=== PATIENT | female | born 1975 | race Hispanic/Latino ===

== ENCOUNTER 2020-06-02 12:43 | Outpatient (CLI) | payer OTHER | END 2020-06-02 12:44 | disposition home or self-care (01) | LOC: DTY/OP 12:43 | PROVIDERS: ATTEND Surgery | DX: E66.01 Morbid (severe) obesity due to excess calories (principal) | CPT/HCPCS: 97802 ==

== ENCOUNTER 2020-08-02 12:31 | Outpatient (CLI) | payer OTHER | END 2020-08-02 12:32 | disposition home or self-care (01) | LOC: DTY/OP 12:31 | PROVIDERS: ATTEND Surgery | DX: E66.01 Morbid (severe) obesity due to excess calories (principal) | CPT/HCPCS: 97802 ==

== ENCOUNTER 2020-09-06 12:35 | Outpatient (CLI) | payer OTHER | END 2020-09-06 12:36 | disposition home or self-care (01) | LOC: DTY/OP 12:35 | PROVIDERS: ATTEND Surgery | DX: E66.01 Morbid (severe) obesity due to excess calories (principal) | CPT/HCPCS: 97802 ==